=== PATIENT | male | born 2000 | race Caucasian/White ===

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

== ENCOUNTER 2023-06-16 18:29 | Inpatient (IN) | payer OTHER ==
[2023-06-16 19:39] LABS: Acetaminophen Less than 10 mcg/mL (10.0-30.0); Alcohol Less than 10.0 mg/dL (Less than 10); Salicylate Less than 8.0 mg/dL (15.0-30.0)
[2023-06-16 20:19] LABS: Anion Gap 10 mmol/L (10-20); BUN (Urea Nitrogen) 8 mg/dL (8.9-20.6); Calc. Creatinine Clearance 0 mL/min (70-130); Calcium 9.1 mg/dL (7.8-10.44); Carbon Dioxide 23 mmol/L (22-29); Chloride 113 mmol/L (98-107); Estimated GFR 132; Glucose 126 mg/dL (70-105); Potassium 4.1 mmol/L (3.5-5.1); Sodium 142 mmol/L (136-145)
[2023-06-16] MEDS ORDERED: Acetaminophen 650 MG Suppository PR PRN (20:47)
[2023-06-16] MEDS ORDERED: Acetaminophen 325 MG TAB PO PRN (20:47)
[2023-06-16] MEDS ORDERED: Ondansetron PF 4 MG/2 ML Vial IVP PRN (20:47)
[2023-06-16] MEDS ORDERED: Ondansetron ODT 4 MG TAB PO PRN (20:47)
[2023-06-16 23:16] VITALS: BMI 21.4
[2023-06-16 23:31] VITALS: BP 135/90
[2023-06-16 23:34] LABS: Anion Gap 10 mmol/L (10-20); BUN (Urea Nitrogen) 8 mg/dL (8.9-20.6); Calc. Creatinine Clearance 142 mL/min (70-130); Calcium 9.7 mg/dL (7.8-10.44); Carbon Dioxide 23 mmol/L (22-29); Chloride 118 mmol/L (98-107); Estimated GFR 131; Glucose 105 mg/dL (70-105); Magnesium 2.2 mg/dL (1.6-2.6); Potassium 4.4 mmol/L (3.5-5.1); Sodium 147 mmol/L (136-145)
[2023-06-16] MEDS ORDERED: Lactated Ringer's 1,000 ML IV SCH (23:45)
[2023-06-16] MEDS ORDERED: Sterile Water 10 ML VIAL FS PRN (23:59)
[2023-06-16] MEDS ORDERED: Ziprasidone 20 MG VIAL IM SCH (23:59)
[2023-06-17] MEDS: Lactated Ringer's 1,000 ML IV SCH ×4 (03:03→21:29)
[2023-06-17 03:39] LABS: #Eosinphils 0.1 thou/uL (0.0-0.7); #Monocytes 0.5 thou/uL (0.11-0.59); %Basophils 0.4 % (0.0-1.0); %Eosinophils 1.8 % (0.0-10.0); %Lymphocytes 17.7 % (21.0-51.0); %Monocytes 8.9 % (0.0-10.0); %Neutrophils 70.8 % (42.0-75.0); Hematocrit 37.9 % (42.0-52.0); Hemoglobin 12.2 g/dL (14.0-18.0); Mean Corpuscular HGB CONC 32.2 g/dL (32.0-36.0); Mean Corpuscular Hemoglobin 31.2 pg (27.0-31.0); Mean Corpuscular Volume 96.9 fl (78.0-98.0); Mean Platelet Volume 9.6 fL (7.4-10.4); Platelet Count 151 10x3/uL (130-400); RBC Distribution Width 12.7 % (11.5-14.5); Red Blood Cell (RBC) Count 3.91 mill/uL (4.70-6.10); White Blood Cell (WBC) Count 5.7 10x3/uL (4.8-10.8)
[2023-06-17 04:00] LABS: Anion Gap 11 mmol/L (10-20); BUN (Urea Nitrogen) 7 mg/dL (8.9-20.6); Calc. Creatinine Clearance 140 mL/min (70-130); Calcium 10.1 mg/dL (7.8-10.44); Carbon Dioxide 25 mmol/L (22-29); Chloride 114 mmol/L (98-107); Estimated GFR 131; Glucose 93 mg/dL (70-105); Potassium 4.4 mmol/L (3.5-5.1); Sodium 146 mmol/L (136-145)
[2023-06-17] MEDS: levETIRAcetam 500 MG/5 ML VIAL SLOW IVP SCH ×2 (11:08→21:29)
[2023-06-17 13:49] LABS: Anion Gap 12 mmol/L (10-20); BUN (Urea Nitrogen) 5 mg/dL (8.9-20.6); Calc. Creatinine Clearance 150 mL/min (70-130); Calcium 9.6 mg/dL (7.8-10.44); Carbon Dioxide 25 mmol/L (22-29); Chloride 105 mmol/L (98-107); Estimated GFR 134; Glucose 104 mg/dL (70-105); Potassium 3.5 mmol/L (3.5-5.1); Sodium 138 mmol/L (136-145)
[2023-06-17] MEDS: Divalproex Sodium 250 MG (DR) TAB PO SCH (20:36)
[2023-06-17] MEDS: traZODone HCl 150 MG TAB PO SCH (20:36)
[2023-06-17] MEDS: medroxyPROGESTERone Acetate 5 MG TAB PO SCH (20:37)
[2023-06-17] MEDS ORDERED: MEDROXYPROGESTERONE ACETATE PO SCH (21:00)
[2023-06-17] MEDS: levETIRAcetam 500 MG TAB PO SCH (21:26)
[2023-06-18 04:36] LABS: Anion Gap 9 mmol/L (10-20); BUN (Urea Nitrogen) 13 mg/dL (8.9-20.6); Calc. Creatinine Clearance 136 mL/min (70-130); Calcium 9.3 mg/dL (7.8-10.44); Carbon Dioxide 26 mmol/L (22-29); Chloride 104 mmol/L (98-107); Estimated GFR 130; Glucose 90 mg/dL (70-105); Sodium 135 mmol/L (136-145)
[2023-06-18] MEDS: Lactated Ringer's 1,000 ML IV SCH ×4 (08:09→22:57)
[2023-06-18] MEDS: Divalproex Sodium 250 MG (DR) TAB PO SCH ×2 (09:16→21:16)
[2023-06-18] MEDS: medroxyPROGESTERone Acetate 5 MG TAB PO SCH ×2 (09:16→21:16)
[2023-06-18] MEDS: levETIRAcetam 500 MG TAB PO SCH ×2 (09:16→21:16)
[2023-06-18] MEDS: traZODone HCl 150 MG TAB PO SCH (21:17)
[2023-06-19 08:36] VITALS: TEMP 98.2
[2023-06-19] MEDS: medroxyPROGESTERone Acetate 5 MG TAB PO SCH (10:20)
[2023-06-19] MEDS: levETIRAcetam 500 MG TAB PO SCH (10:20)
[2023-06-19] MEDS: Divalproex Sodium 250 MG (DR) TAB PO SCH (10:20)
[2023-06-19] MEDS ORDERED: QUEtiapine 100 MG TAB PO SCH (13:00)
[2023-06-19] MEDS ORDERED: Lithium Carbonate 150 MG CAP PO SCH (21:00)
[2023-06-19] MEDS ORDERED: QUETIAPINE FUMARATE 400 MG PO SCH (21:00)
[2023-06-19] MEDS ORDERED: QUEtiapine 200 MG TAB PO SCH (21:00)
[2023-06-19] MEDS ORDERED: LITHIUM CARBONATE 300 MG PO SCH (21:00)
== END 2023-06-19 13:45 | disposition home or self-care (01) | DRG 918 ==
LOC: ERS 18:29 → INTOOBSV 20:49 → IMCU/EMU 20:49 → OBSVTOIN 06-17 08:47
PROVIDERS: ADMIT Student in an Organized Health Care Education/Training Program; ATTEND Internal Medicine
DX: T43.591A Poisoning by other antipsychotics and neuroleptics, accidental (unintentional), initial encounter (principal); F84.0 Autistic disorder; E87.0 Hyperosmolality and hypernatremia; G80.9 Cerebral palsy, unspecified; F20.9 Schizophrenia, unspecified; F31.9 Bipolar disorder, unspecified; G40.909 Epilepsy, unspecified, not intractable, without status epilepticus; R62.50 Unspecified lack of expected normal physiological development in childhood; T56.891A Toxic effect of other metals, accidental (unintentional), initial encounter; Y92.89 Other specified places as the place of occurrence of the external cause
CPT/HCPCS: 36415; 80048; 80164; 80178; 80307; 83735; 85025; 93005; 96360; 96372; G0378; J3486; J7120